=== PATIENT | female | born 1990 | race American Indian/Alaskan Native ===

== ENCOUNTER 2018-02-16 01:53 | Emergency (ER) | payer BC ==
[2018-02-16] MEDS ORDERED: SOLU-Medrol ONE (02:20)
[2018-02-16] MEDS ORDERED: PEPCID IV ONE ×2 (02:20→02:24)
[2018-02-16] MEDS ORDERED: ADRENALIN ONE (02:20)
[2018-02-16] MEDS ORDERED: ADRENALINE P/F SUB-Q ONE (02:24)
[2018-02-16] MEDS ORDERED: SOLU-Medrol IV ONE (02:24)
--- NOTE | 2018-02-16 03:21 | Emergency Department Report ---
HPI - General Chief Complaint: Allergic Reaction Time Seen by Provider: 02/16/18 02:19 - HPI HPI: 27-year-old female presents to the emergency department with concern for an allergic reaction. The patient ate a salad around 2 AM was made by somebody else and she is unsure of all of the agreed he ends. The patient has a pretty significant allergy to seafood. She began feeling as if her throat and tongue were starting to swell. She took about 50 mg of Benadryl. She denies any shortness of breath, chest pain, fever. She did start to develop some urticaria. ED Past Medical Hx - Past Medical History Previous Medical History?: No - Surgical History Past Surgical History?: No - Social History Smoking Status: Never Smoker Substance Use Type: None - Medications Home Medications: Home Medications Medication Instructions Recorded Confirmed Last Taken Type Famotidine [Pepcid] 20 mg PO BID #6 tablet 02/16/18 Unknown Rx predniSONE [Deltasone] 20 mg PO BID #6 tab 02/16/18 Unknown Rx ED Review of Systems ROS: Stated complaint: POSSIBLE ALLERGIC REACTION Other details as noted in HPI Comment: All other systems reviewed and negative Constitutional: denies: chills, fever Eyes: denies: eye pain, eye discharge, vision change ENT: throat pain, other (swelling of tongue). denies: ear pain Cardiovascular: denies: chest pain, palpitations Gastrointestinal: denies: abdominal pain, nausea, diarrhea Genitourinary: denies: urgency, dysuria, discharge Musculoskeletal: denies: back pain, joint swelling, arthralgia Skin: rash, pruritus Neurological: denies: headache, weakness, paresthesias Physical Exam - Physical Exam Vital Signs: Vital Signs 02/16/18 02/16/18 01:56 02:27 Pulse Rate 93 H Respiratory 18 22 Rate Blood Pressure 106/69 O2 Sat by Pulse 99 98 Oximetry Physical Exam: GENERAL: The patient is well-developed well-nourished. HENT: Normocephalic. Atraumatic. Patient has moist mucous membranes. The patient has a clear oropharynx and there is no obvious swelling of the tongue or posterior pharynx patient does talk as if her tongue is swollen. No drooling or trismus. EYES: Extraocular motions are intact. Pupils equal reactive to light bilaterally. NECK: Supple. Trachea is midline. CHEST/LUNGS: Clear to auscultation. There is no respiratory distress noted. HEART/CARDIOVASCULAR: Regular. There is no tachycardia. There is no murmur. ABDOMEN: Abdomen is soft, nontender. Patient has normal bowel sounds. There is no abdominal distention. SKIN: Skin is warm and dry. There are a few sporadic urticarial lesions seen. NEURO: The patient is awake, alert, and oriented. The patient is cooperative. The patient has no focal neurologic deficits. The patient has normal speech. MUSCULOSKELETAL: There is no tenderness or deformity. There is no limitation range of motion. There is no evidence of acute injury. ED Course Vital Signs 02/16/18 02/16/18 01:56 02:27 Pulse Rate 93 H Respiratory 18 22 Rate Blood Pressure 106/69 O2 Sat by Pulse 99 98 Oximetry ED Medical Decision Making - Medical Decision Making The patient presents with what appears to be an allergic reaction based on a salad she ate around 2 in the morning. She has a known seafood allergy but it is unknown whether there is any seafood in there but she did not make food. She comes in talking as if there is some swelling to the tongue or throat but she seems to have good posterior pharynx and the tongue does not appear excessively swollen. Nonetheless, the patient has been given Solu-Medrol, Pepcid and epinephrine, to go along with the Benadryl that she took prior to arrival. The patient was reevaluated multiple times over multiple hours and appears improved. Her voice is completely normal. There has been no drooling or trismus, chest pain or signs of any respiratory distress. Diffuse sporadic urticarial lesions have resolved. She will go home on a few days of steroids, Pepcid and will use Advil as necessary. She's been instructed to follow-up with her primary care physician and return to the emergency department with any return of her symptoms or any acute distress. Critical Care Time: No Critical care attestation.: If time is entered above; I have spent that time in minutes in the direct care of this critically ill patient, excluding procedure time. ED Disposition Clinical Impression: Allergic reaction Qualifiers: Encounter type: initial encounter Qualified Code(s): T78.40XA - Allergy, unspecified, initial encounter Disposition: - TO HOME OR SELFCARE Is pt being admited?: No Condition: Stable Instructions: Urticaria (ED), Food Allergy (ED) Additional Instructions: You were seen today for a suspicion of an allergic reaction. You received steroids, Pepcid, epinephrine and he had previously taken Benadryl. Please try and stay away from whatever allergen may have caused your reaction. Return to the emergency department immediately with any worsening of your symptoms including any swelling of the tongue, lips, throat, shortness of breath, chest pain or difficulty swallowing. I am prescribing you a few days of steroids, Pepcid and you can take Benadryl as needed. Follow-up with your primary care physician. Prescriptions: Famotidine [Pepcid] 20 mg PO BID #6 tablet predniSONE [Deltasone] 20 mg PO BID #6 tab Referrals: CHARLEEN MCCOLLUM MD [Staff Physician] - 3-5 Days [facility] [Outside] - 3-5 Days Forms: Accompanied Note, Work/School Release Form(ED) Time of Disposition: 06:05
[2018-02-16 04:41] VITALS: BP 99/55
== END 2018-02-16 06:50 | disposition home or self-care (01) ==
LOC: ED 01:53
DX: T78.40XA Allergy, unspecified, initial encounter (principal)
CPT/HCPCS: 96372; 96374; 96375; 99282; J0171; J2930